=== PATIENT | female | born 2000 | race Caucasian/White ===

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

== ENCOUNTER 2018-05-25 00:54 | Emergency (ER) | payer OTHER ==
--- NOTE | 2018-05-25 00:58 | EDPHY ---
H & P Stated Complaint: ETOH Time Seen by Provider: 05/25/18 00:58 HPI/ROS: CHIEF COMPLAINT: Alcohol intoxication HISTORY OF PRESENT ILLNESS: The patient is a university student. Patient was found by her friends who picked her up from [place] to be severely intoxicated and therefore they brought her into the emergency department. She had vomited several times. Patient denies any injuries, denies loss of consciousness, denies any recent trauma. Patient denies coingestion, patient denies suicidal or homicidal behavior. REVIEW OF SYSTEMS: 10 systems were reviewed and negative with the exception of the elements mentioned in the history of present illness. PAST MEDICAL HISTORY: None PAST SURGICAL HISTORY: None SOCIAL HISTORY: Student, single, denies tobacco or drug use, drinks alcohol occasionally PHYSICAL EXAM: General Appearance: Alert, well hydrated, appropriate, and non-toxic appearing. Head: Atraumatic without scalp tenderness or obvious injury Eyes: Pupils equal, round, reactive to light, no injection. Ears: Clear bilaterally, no perforation, normal landmarks Nose: Atraumatic, no rhinorrhea, clear. Throat: mucus membranes moist. Neck: Supple, non-tender, no lymphadenopathy. Respiratory: No retractions, no distress, no wheezes, and no accessory muscle use. Lungs are clear to auscultation bilaterally. Cardiovascular: Regular rate and rhythm, no murmurs, rubs, or gallops. Gastrointestinal: Abdomen is soft, non-tender, non-distended Musculoskeletal: Normal active ROM of all extremities, atraumatic. Neurological: Alert, appropriate, and interactive. Moves all extremities equally. Skin: No rashes, good turgor, no nodules on palpation. MEDICAL DECISION MAKING: I serially examined this patient since the patient's arrival here in the emergency department. The patient continues to become more and more sober with each examination. I serially questioned the patient and the patient's story given initially has not changed. The patient still denies any trauma, any head injury, and any illicit drug use. At this point, the patient is walking the department freely and is clinically sober. We're discharging the patient to home with her sober friends. Source: Patient, Other - Personal History LMP (Females 10-55): 1-7 Days Ago Current Tetanus/Diphtheria Vaccine: Yes Current Tetanus Diphtheria and Acellular Pertussis (TDAP): Yes - Medical/Surgical History Hx Asthma: No Hx Chronic Respiratory Disease: No Hx Diabetes: No Hx Cardiac Disease: No Hx Renal Disease: No Hx Cirrhosis: No Hx Alcoholism: No Hx HIV/AIDS: No Hx Splenectomy or Spleen Trauma: No Other PMH: facial surgery - Social History Smoking Status: Current every day smoker Constitutional: Initial Vital Signs Temperature (C) 36.2 C 05/25/18 00:55 Heart Rate 73 05/25/18 00:55 Respiratory Rate 16 05/25/18 00:55 Blood Pressure 116/87 H 05/25/18 00:55 O2 Sat (%) 100 05/25/18 00:55 O2 Delivery Mode Room Air Allergies/Adverse Reactions: No Known Allergies Allergy (Unverified 05/25/18 00:56) Home Medications: Medication Instructions Recorded Wellbutrin 100mg (*) 05/25/18 Medical Decision Making - Data Points Medications Given: Discontinued Medications Ondansetron HCl (Zofran Odt) 4 mg PO EDNOW ONE Stop: 05/25/18 01:11 Last Admin: 05/25/18 01:13 Dose: 4 mg Departure - Departure Disposition: Home, Routine, Self-Care Clinical Impression: Alcoholic intoxication Qualifiers: Complication of substance-induced condition: with delirium Qualified Code(s): F10.921 - Alcohol use, unspecified with intoxication delirium Vomiting Qualifiers: Vomiting type: unspecified Vomiting Intractability: non-intractable Nausea presence: with nausea Qualified Code(s): R11.2 - Nausea with vomiting, unspecified Condition: Good Instructions: At-Risk Alcohol Use (ED) Additional Instructions: Please return to the emergency department if your worse in any way. Referrals: [facility],. [Clinic] - As per Instructions
[2018-05-25] MEDS ORDERED: ONDANSETRON DISINTEGRATING 4 MG TAB PO ONE (01:10)
[2018-05-25 02:20] VITALS: BP 101/66
== END 2018-05-25 02:18 | disposition home or self-care (01) ==
DX: F10.921 Alcohol use, unspecified with intoxication delirium (principal)

== ENCOUNTER 2018-08-08 18:43 | Emergency (ER) | payer OTHER | END 2018-08-08 19:36 | disposition home or self-care (01) ==